=== PATIENT | male | born 1975 | race Caucasian/White ===

== ENCOUNTER → 2024-03-03 | Outpatient (CLI) | payer OTHER ==
[~2024-03-03] MED LIST: GADOTERATE MEGLUMINE 10 MMOL/20 ML VIAL IVP ONE
== END | disposition home or self-care (01) ==
LOC: RADMN 10:23
PROVIDERS: ATTEND Nurse Practitioner Family
DX: M51.34 Other intervertebral disc degeneration, thoracic region (principal); G35 Multiple sclerosis; M54.2 Cervicalgia; M54.50 Low back pain, unspecified; D18.09 Hemangioma of other sites; Q05.6 Thoracic spina bifida without hydrocephalus
CPT/HCPCS: 70553; 72156; 72157; 72158; A9575